=== PATIENT | male | born 1955 | race Caucasian/White ===

== ENCOUNTER → 2018-06-11 | Outpatient (CLI) | payer BC | LOC: M ADAMS 14:10 | DX: S60.221A Contusion of right hand, initial encounter (principal); X58.XXXA Exposure to other specified factors, initial encounter; Y92.9 Unspecified place or not applicable; M19.041 Primary osteoarthritis, right hand | CPT/HCPCS: 73130 ==

== ENCOUNTER → 2018-06-12 | Outpatient (REF) | payer BC ==
[2018-06-12 16:11] LABS: ANION GAP 11 MEQ/L (8-16); BLOOD UREA NITROGEN 9 MG/DL (7-18); CALCIUM LEVEL 8.5 MG/DL (8.8-10.2); CARBON DIOXIDE LEVEL 23 MEQ/L (21-32); CHLORIDE LEVEL 101 MEQ/L (98-107); CHOLESTEROL LEVEL 116 MG/DL (<200); CREATININE FOR GFR 0.75 MG/DL (0.70-1.30); GLOMERULAR FILTRATION RATE > 60.0 (>49); GLUCOSE, FASTING 108 MG/DL (70-100); HDL CHOLESTEROL 50 MG/DL (>40); LDL CHOLESTEROL 36.4 MG/DL (<100); NON-HDL-C 66 MG/DL; POTASSIUM SERUM 4.5 MEQ/L (3.5-5.1); SODIUM LEVEL 135 MEQ/L (136-145); TRIGLYCERIDES LEVEL 148 MG/DL (<150)
[2018-06-12 16:20] LABS: ESTIMATED AVERAGE GLUCOSE 157 MG/DL (60-110); HEMOGLOBIN A1c 7.1 %
[2018-06-12 16:38] LABS: CREATININE, URINE 31.3 MG/DL; MALB URINE SIEMENS < 5.0 MG/L; MAU/CREAT RATIO 15.9 MCG/MG (0.0-30.0)
== END ==
LOC: M SFHCPLAZ 15:54
DX: E11.42 Type 2 diabetes mellitus with diabetic polyneuropathy (principal)
CPT/HCPCS: 83036

== ENCOUNTER → 2019-05-27 | Outpatient (REF) | payer BC ==
[2019-05-27 13:04] LABS: TESTOSTERONE 746 NG/DL (241-827); VITAMIN B12 LEVEL 293 PG/ML (247-911)
[2019-05-27 13:29] LABS: HEMOGLOBIN A1c 6.6 %
== END ==
LOC: M SFHCPLAZ 10:02
PROVIDERS: ATTEND Family Medicine
DX: E11.42 Type 2 diabetes mellitus with diabetic polyneuropathy (principal); R68.82 Decreased libido; G62.9 Polyneuropathy, unspecified

== ENCOUNTER → 2019-12-03 | Outpatient (CLI) | payer MEDICARE, BC ==
[2019-12-03 12:42] LABS: CHOLESTEROL RISK RATIO 2.543 (<5)
[2019-12-03 13:04] LABS: HEMOGLOBIN A1c 7.4 %
[2019-12-03 13:20] LABS: MALB URINE SIEMENS 33.9 MG/L; MAU/CREAT RATIO 16.4 MCG/MG (0.0-30.0)
== END ==
LOC: M PLALAB 08:38
PROVIDERS: ATTEND Family Medicine
DX: E11.42 Type 2 diabetes mellitus with diabetic polyneuropathy (principal); E78.5 Hyperlipidemia, unspecified; Z12.5 Encounter for screening for malignant neoplasm of prostate
CPT/HCPCS: 36415; 80061; 82043; 83036; G0103; G0463

== ENCOUNTER → 2020-04-18 | Outpatient (CLI) | payer BC, MEDICARE ==
[2020-04-18 15:06] LABS: HEMOGLOBIN A1c 6.7 %
[2020-04-19 19:08] LABS: Lyme Disease IgG/IgM Antibodie <0.91 ISR (0.00-0.90); Lyme Disease IgM Ab Quantitati <0.80 index (0.00-0.79)
== END ==
LOC: M PLALAB 09:05
PROVIDERS: ATTEND Family Medicine
DX: E11.42 Type 2 diabetes mellitus with diabetic polyneuropathy (principal); W57.XXXS Bitten or stung by nonvenomous insect and other nonvenomous arthropods, sequela

== ENCOUNTER → 2020-10-25 | Outpatient (REF) | payer BC, MEDICARE | LOC: M SFHCPLAZ 17:05 | PROVIDERS: ATTEND Family Medicine | DX: R43.0 Anosmia (principal) ==

== ENCOUNTER → 2020-12-22 | Outpatient (REF) | payer MEDICARE, BC ==
[2020-12-22 17:33] LABS: HEMOGLOBIN A1c 5.4 %
== END ==
LOC: M PLALAB 14:15
PROVIDERS: ATTEND Family Medicine
DX: E11.42 Type 2 diabetes mellitus with diabetic polyneuropathy (principal)

== ENCOUNTER → 2021-04-03 | Outpatient (REF) | payer MEDICARE, BC ==
[2021-04-03 15:43] LABS: HEMOGLOBIN A1c 5.8 %
[2021-04-03 15:51] LABS: BLOOD UREA NITROGEN 13 MG/DL (7-18); CALCIUM LEVEL 9.1 MG/DL (8.8-10.2); CARBON DIOXIDE LEVEL 29 MEQ/L (21-32); CHLORIDE LEVEL 103 MEQ/L (98-107); CREATININE FOR GFR 0.84 MG/DL (0.70-1.30); GLOMERULAR FILTRATION RATE > 60.0 (>49); GLUCOSE, FASTING 114 MG/DL (70-100); POTASSIUM SERUM 5.3 MEQ/L (3.5-5.1); SODIUM LEVEL 137 MEQ/L (136-145)
[2021-04-03 15:57] LABS: MALB URINE SIEMENS 7.8 MG/L; MAU/CREAT RATIO 5.4 MCG/MG (0.0-30.0)
== END ==
LOC: M PLALAB 12:47
PROVIDERS: ATTEND Family Medicine
DX: E11.42 Type 2 diabetes mellitus with diabetic polyneuropathy (principal); R35.1 Nocturia
CPT/HCPCS: 36415; 80048; 82043; 83036; G0103

== ENCOUNTER → 2021-04-04 | Outpatient (REF) | payer MEDICARE, BC ==
[2021-04-04 14:49] LABS: BLOOD UREA NITROGEN 11 MG/DL (7-18); CALCIUM LEVEL 9.3 MG/DL (8.8-10.2); CARBON DIOXIDE LEVEL 29 MEQ/L (21-32); CHLORIDE LEVEL 104 MEQ/L (98-107); CREATININE FOR GFR 0.82 MG/DL (0.70-1.30); GLOMERULAR FILTRATION RATE > 60.0 (>49); GLUCOSE, FASTING 127 MG/DL (70-100); POTASSIUM SERUM 4.9 MEQ/L (3.5-5.1); SODIUM LEVEL 138 MEQ/L (136-145)
== END ==
LOC: M PLALAB 11:04
PROVIDERS: ATTEND Family Medicine
DX: E87.5 Hyperkalemia (principal)

== ENCOUNTER → 2021-07-21 | Outpatient (CLI) | payer MEDICARE, BC ==
[2021-07-21 15:43] LABS: HEMOGLOBIN A1c 5.9 %
== END ==
LOC: M PLALAB 12:37
PROVIDERS: ATTEND Family Medicine
DX: E11.42 Type 2 diabetes mellitus with diabetic polyneuropathy (principal)